=== PATIENT | male | born 1975 | race Caucasian/White ===

== ENCOUNTER 2016-07-21 18:58 | Emergency (ER) | payer SELFPAY ==
--- NOTE | 2016-07-21 23:56 | ED CLINICAL REPORT ---
Clinical Report - Physicians/Mid Levels [facility] [address] [place] [address] 07/21/2016 19:00 Patient: TIMMY LUKE Time Seen: 20:53. Arrived- By private vehicle. Historian- patient. HISTORY OF PRESENT ILLNESS Chief Complaint: RIGHT TESTICULAR PAIN. This started about 4 days ago and is still present. The problem is described as severe. It was gradual in onset and has been constant. No penile discharge, discomfort with urination or genital lesion. The patient has had mild urinary frequency with previous similar symptoms (chronically). He has had testicular pain. He has been voiding small amounts (frequently). Similar symptoms previously: None. REVIEW OF SYSTEMS No chills, fever, sweats, calf pain or chest pain. No cough, difficulty breathing, pedal edema, palpitations or abdominal pain. No constipation, diarrhea, nausea or vomiting. He has had frequency (chronically). It has been similar to previous symptoms. All systems otherwise negative, except as recorded above. PAST HISTORY Problems: Hypertension. Dental Pain. Dental Caries. Torn rotator cuff zara shoulders. Additional Surgeries: Appendectomy. Hernia Repair. Medications: None. Allergies: No Known Drug Allergy. SOCIAL HISTORY Current every day heavy tobacco smoker (cigarette)- 1 pack per day. Occasional alcohol use. History of occasional drug use: marijuana. He lives with spouse. ADDITIONAL NOTES The nursing notes have been reviewed. PHYSICAL EXAM Vital Signs: 07/21/2016 19:27 BP: 134/80. HR: 72. RR: 18. O2 saturation: 99%. Temp: 98.5 F. Have been reviewed. Appearance: Alert. ENT: Pharynx normal. Neck: Neck supple. CVS: Heart sounds normal. Respiratory: No respiratory distress. Breath sounds normal. Abdomen: Soft and nontender. Bowel sounds normal. No organomegaly. No mass. Back: Normal external inspection. No CVA tenderness. : Severe tenderness of the right testicle, epididymis and spermatic cord. No urethral discharge, genital lesion, hernia mass or scrotal mass or swelling. No inguinal lymphadenopathy. Skin: Skin warm and dry. Normal skin color. No rash. Normal skin turgor. Extremities: No lower extremity edema. LABS, X-RAYS, AND EKG Scrotal Sonogram: IMPRESSION: 1. Normal testicles. 2. Mild vascularity of the right epididymis. Consider epididymitis. The study was interpreted contemporaneously by me and discussed with the radiologist. PROGRESS AND PROCEDURES Patient/family counseled. Old medical records reviewed. Disposition: Discharged. Condition: stable. CLINICAL IMPRESSION Right epididymitis INSTRUCTIONS Drink plenty of fluids. Warnings: Further evaluation is necessary. GENERAL WARNINGS: Return or contact your physician immediately if your condition worsens or changes unexpectedly, if not improving as expected, or if other problems arise. Prescription Medications: Cipro 500 mg: take 1 tab orally every 12 hours for 10 days. Dispense twenty (20). No refills. Substitution is permissible. Understanding of the discharge instructions verbalized by patient and family. Follow-up with: James Nicholson MD, Internal Medicine, , [facility], [address] [place] [address] Follow up in five days. Call for the next available appointment. (Electronically signed by Caio Hilliard MD 07/25/2016 18:35)
--- NOTE | 2016-07-21 23:56 | ED ORDER SUMMARY ---
..... Patient: TIMMY LUKE OrderSheet [facility] VisitID: [id number] [address] [place] [address] 40y, M Registration Date/Time: 07/21/2016 ORDER SHEET Weight: 113.3 kg (stated) Allergies: No Known Drug Allergy GENERAL ORDERS: US Scrotum/Testicular Urgent (21:21 07/21/2016 [employer] verbal order read back to Alyssa GRANT) (Ack 21:28 [employer] ER Tech[facility]) (22:54 LMuller) UA-Culture if indicated Urgent (21:32 07/21/2016 Alyssa GRANT) (Ack 21:33 [facility] ER Tech1) (21:37 JQuivesamara R.N.) MEDICATION ORDERS: Levaquin PO 500 mg (NOW) (23:55 07/21/2016 Alyssa GRANT) (0:03 JQuivey R.N.) IV FLUIDS: ORDER SHEET NOTES: [Electronically signed by Marcello Montes R.N. (07/22/2016)] [Electronically signed by Caio Hilliard MD (18:35 07/25/2016)] [Electronically locked/signed by Marcello Montes R.N. (07/22/2016)]
--- NOTE | 2016-07-21 23:56 | ED NURSING NOTES ---
Clinical Report - Nurses [facility] [address] [place] [address] 07/21/2016 19:00 Patient: TIMMY LUKE TRIAGE Triage time 19:Jul 21 2016. Acuity: LEVEL 3. Alert. No acute distress. --19:31 Joellen Camacho R.N. 19:27 07/21/16. BP: 134/80. HR: 72. RR: 18. O2 saturation: 99%. Temp: 98.5 F. Pain level now 02/19. --19:31 Joellen Camacho R.N. Chief Complaint: (Groin pain). --01:22 Marcello Montes R.N. Weight: 113.3 kg stated. Height/Length: 72 inches Per Patient. BMI: 33.9. --19:27 Joellen Camacho R.N. Medications None. --19:30 Joellen Camacho R.N. Medication/allergy information source: the patient. --19:31 Joellen Camacho R.N. Allergies No Known Drug Allergy. --19:30 Joellen Camacho R.N. History Arrived by private vehicle, and accompanied by family. Primary physician (Nolan). ( 4 days of groin pain, has a hx of surgury in the same area. Inguinal Hernia. Also the pain radiates down to his Right Testicular area. Pain 810.). Onset. (4 days). 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 SOCIAL HX: Heavy tobacco smoker (cigarette)- 1 pack per day. Occasional alcohol use. History of drug use: marijuana. No recent travel. No known contact with a sick individual. NUTRITIONAL RISK ASSESSMENT: The nutritional risk assessment revealed no deficiencies. FUNCTIONAL ASSESSMENT: Functional assessment: no impairments noted. LEARNING NEEDS ASSESSMENT: The learning needs assessment revealed no barriers. --19:31 Joellen Camacho R.N. PROBLEMS: Hypertension. Dental Pain. Immunizations. Dental Caries. Torn rotator cuff zara shoulders. --19:30 Joellen Camacho R.N. ADDITIONAL SURGERIES: Appendectomy. --19:30 Joellen Camacho R.N. Interventions ID band on patient. To room. --19:31 Joellen Camacho R.N. PHYSICAL ASSESSMENT Ambulatory to room. Patient gowned. GENERAL / NEURO / PSYCH: Alert. Oriented X 4. HEENT: Mucous membranes are pink. RESPIRATORY: Respirations not labored. GI / : Normal genitalia. SKIN: Skin is warm and dry. --20:50 Marcello Montes R.N. NURSING PROGRESS NOTES 20:47. Head of bed elevated. Two patient identifiers checked. Call light placed in reach. Side rails up x 1. Bed placed in lowest position. Brakes of bed on. Patient ready for evaluation- chart flagged. --20:47 Marcello Montes R.N. 21:34. Patient ID band checked for patient name and birthdate: patient confirmed. Clean catch urine collected with return of yellow-colored clear urine; sample sent to lab for urinalysis. Specimen labeled in the presence of the patient. --21:35 Marcello Montes R.N. The patient is calm and resting quietly. SKIN: Skin is warm and dry. Skin color within normal limits. --21:37 Marcello Montes R.N. 21:36 07/21/16. BP: 128/74. HR: 62. RR: 15. O2 saturation: 99% on room air. Pain level now: 10. --21:37 Marcello Montes R.N. 22:28 regulatory and compliance technician with patient for exam. --22:57 Marcello Montes R.N. 23:52 07/21/2016 Levaquin (Levofloxacin) PO 500 mg given. Allergies verified and confirmed 5 rights. --00:03 Marcello Montes R.N. 23:59. SKIN: Skin color within normal limits. --01:21 Marcello Montes R.N. DISPOSITION / DISCHARGE Departure time: 427. Condition at departure: stable. ( Patient is upset about waiting so long, sitting on edge of bed, dressed and stated " I just about walked out of here a while ago, it's been an hour since the was in here." Patient refused vitals). No learning barriers present. Discharge instructions provided and reviewed with the patient and spouse. Patient and spouse verbalized understanding. Written instructions provided in Canadian. The patient was discharged home and accompanied by spouse. He left the Emergency Department ambulatory and via private vehicle. Spouse driving. FALL RISK ASSESSMENT: Fall risk assessment completed. No fall risk identified. --01:21 Marcello Montes R.N. Locked/Released at 07/22/2016 1:22 by Marcello Montes R.N.
--- NOTE | 2016-07-21 23:56 | ED NURSING NOTES ---
Clinical Report - Nurses [facility] [address] [place] [address] 07/21/2016 19:00 Patient: TIMMY LUKE TRIAGE Triage time 19:Jul 21 2016. Acuity: LEVEL 3. Alert. No acute distress. --19:31 Joellen Camacho R.N. 19:27 07/21/16. BP: 134/80. HR: 72. RR: 18. O2 saturation: 99%. Temp: 98.5 F. Pain level now 02/19. --19:31 Joellen Camacho R.N. Chief Complaint: (Groin pain). --01:22 Marcello Montes R.N. Weight: 113.3 kg stated. Height/Length: 72 inches Per Patient. BMI: 33.9. --19:27 Joellen Camacho R.N. Medications None. --19:30 Joellen Camacho R.N. Medication/allergy information source: the patient. --19:31 Joellen Camacho R.N. Allergies No Known Drug Allergy. --19:30 Joellen Camacho R.N. History Arrived by private vehicle, and accompanied by family. Primary physician (Nolan). ( 4 days of groin pain, has a hx of surgury in the same area. Inguinal Hernia. Also the pain radiates down to his Right Testicular area. Pain 810.). Onset. (4 days). 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 SOCIAL HX: Heavy tobacco smoker (cigarette)- 1 pack per day. Occasional alcohol use. History of drug use: marijuana. No recent travel. No known contact with a sick individual. NUTRITIONAL RISK ASSESSMENT: The nutritional risk assessment revealed no deficiencies. FUNCTIONAL ASSESSMENT: Functional assessment: no impairments noted. LEARNING NEEDS ASSESSMENT: The learning needs assessment revealed no barriers. --19:31 Joellen Camacho R.N. PROBLEMS: Hypertension. Dental Pain. Immunizations. Dental Caries. Torn rotator cuff zara shoulders. --19:30 Joellen Camacho R.N. ADDITIONAL SURGERIES: Appendectomy. --19:30 Joellen Camacho R.N. Interventions ID band on patient. To room. --19:31 Joellen Camacho R.N. PHYSICAL ASSESSMENT Ambulatory to room. Patient gowned. GENERAL / NEURO / PSYCH: Alert. Oriented X 4. HEENT: Mucous membranes are pink. RESPIRATORY: Respirations not labored. GI / : Normal genitalia. SKIN: Skin is warm and dry. --20:50 Marcello Montes R.N. NURSING PROGRESS NOTES 20:47. Head of bed elevated. Two patient identifiers checked. Call light placed in reach. Side rails up x 1. Bed placed in lowest position. Brakes of bed on. Patient ready for evaluation- chart flagged. --20:47 Marcello Montes R.N. 21:34. Patient ID band checked for patient name and birthdate: patient confirmed. Clean catch urine collected with return of yellow-colored clear urine; sample sent to lab for urinalysis. Specimen labeled in the presence of the patient. --21:35 Marcello Montes R.N. The patient is calm and resting quietly. SKIN: Skin is warm and dry. Skin color within normal limits. --21:37 Marcello Montes R.N. 21:36 07/21/16. BP: 128/74. HR: 62. RR: 15. O2 saturation: 99% on room air. Pain level now: 10. --21:37 Marcello Montes R.N. 22:28 ocular care technician with patient for exam. --22:57 Marcello Montes R.N. 23:52 07/21/2016 Levaquin (Levofloxacin) PO 500 mg given. Allergies verified and confirmed 5 rights. --00:03 Marcello Montes R.N. 23:59. SKIN: Skin color within normal limits. --01:21 Marcello Montes R.N. DISPOSITION / DISCHARGE Departure time: 747. Condition at departure: stable. ( Patient is upset about waiting so long, sitting on edge of bed, dressed and stated " I just about walked out of here a while ago, it's been an hour since the was in here." Patient refused vitals). No learning barriers present. Discharge instructions provided and reviewed with the patient and spouse. Patient and spouse verbalized understanding. Written instructions provided in Surinamese. The patient was discharged home and accompanied by spouse. He left the Emergency Department ambulatory and via private vehicle. Spouse driving. FALL RISK ASSESSMENT: Fall risk assessment completed. No fall risk identified. --01:21 Marcello Montes R.N. Locked/Released at 07/22/2016 1:22 by Marcello Montes R.N.
--- NOTE | 2016-07-21 23:56 | ED CLINICAL REPORT ---
Clinical Report - Physicians/Mid Levels [facility] [address] [place] [address] 07/21/2016 19:00 Patient: TIMMY LUKE Time Seen: 20:53. Arrived- By private vehicle. Historian- patient. HISTORY OF PRESENT ILLNESS Chief Complaint: RIGHT TESTICULAR PAIN. This started about 4 days ago and is still present. The problem is described as severe. It was gradual in onset and has been constant. No penile discharge, discomfort with urination or genital lesion. The patient has had mild urinary frequency with previous similar symptoms (chronically). He has had testicular pain. He has been voiding small amounts (frequently). Similar symptoms previously: None. REVIEW OF SYSTEMS No chills, fever, sweats, calf pain or chest pain. No cough, difficulty breathing, pedal edema, palpitations or abdominal pain. No constipation, diarrhea, nausea or vomiting. He has had frequency (chronically). It has been similar to previous symptoms. All systems otherwise negative, except as recorded above. PAST HISTORY Problems: Hypertension. Dental Pain. Dental Caries. Torn rotator cuff zara shoulders. Additional Surgeries: Appendectomy. Hernia Repair. Medications: None. Allergies: No Known Drug Allergy. SOCIAL HISTORY Current every day heavy tobacco smoker (cigarette)- 1 pack per day. Occasional alcohol use. History of occasional drug use: marijuana. He lives with spouse. ADDITIONAL NOTES The nursing notes have been reviewed. PHYSICAL EXAM Vital Signs: 07/21/2016 19:27 BP: 134/80. HR: 72. RR: 18. O2 saturation: 99%. Temp: 98.5 F. Have been reviewed. Appearance: Alert. ENT: Pharynx normal. Neck: Neck supple. CVS: Heart sounds normal. Respiratory: No respiratory distress. Breath sounds normal. Abdomen: Soft and nontender. Bowel sounds normal. No organomegaly. No mass. Back: Normal external inspection. No CVA tenderness. : Severe tenderness of the right testicle, epididymis and spermatic cord. No urethral discharge, genital lesion, hernia mass or scrotal mass or swelling. No inguinal lymphadenopathy. Skin: Skin warm and dry. Normal skin color. No rash. Normal skin turgor. Extremities: No lower extremity edema. LABS, X-RAYS, AND EKG Scrotal Sonogram: IMPRESSION: 1. Normal testicles. 2. Mild vascularity of the right epididymis. Consider epididymitis. The study was interpreted contemporaneously by me and discussed with the radiologist. PROGRESS AND PROCEDURES Patient/family counseled. Old medical records reviewed. Disposition: Discharged. Condition: stable. CLINICAL IMPRESSION Right epididymitis INSTRUCTIONS Drink plenty of fluids. Warnings: Further evaluation is necessary. GENERAL WARNINGS: Return or contact your physician immediately if your condition worsens or changes unexpectedly, if not improving as expected, or if other problems arise. Prescription Medications: Cipro 500 mg: take 1 tab orally every 12 hours for 10 days. Dispense twenty (20). No refills. Substitution is permissible. Understanding of the discharge instructions verbalized by patient and family. Follow-up with: James Nicholson MD, Internal Medicine, , [facility], [address] [place] [address] Follow up in five days. Call for the next available appointment. (Electronically signed by Caio Hilliard MD 07/25/2016 18:35)
--- NOTE | 2016-07-21 23:56 | ED ORDER SUMMARY ---
..... Patient: TIMMY LUKE OrderSheet [facility] VisitID: [id number] [address] [place] [address] 40y, M Registration Date/Time: 07/21/2016 ORDER SHEET Weight: 113.3 kg (stated) Allergies: No Known Drug Allergy GENERAL ORDERS: US Scrotum/Testicular Urgent (21:21 07/21/2016 [facility] ER Tech1 verbal order read back to Alyssa GRANT) (Ack 21:28 [facility] ER Tech1) (22:54 LMuller) UA-Culture if indicated Urgent (21:32 07/21/2016 Alyssa GRANT) (Ack 21:33 [facility] ER Tech1) (21:37 JQuivesamara R.N.) MEDICATION ORDERS: Levaquin PO 500 mg (NOW) (23:55 07/21/2016 Alyssa GRANT) (0:03 JQuivey R.N.) IV FLUIDS: ORDER SHEET NOTES: [Electronically signed by Marcello Montes R.N. (07/22/2016)] [Electronically signed by Caio Hilliard MD (18:35 07/25/2016)] [Electronically locked/signed by Marcello Montes R.N. (07/22/2016)]
--- NOTE | 2016-07-22 00:03 | DIAGNOSTIC IMAGING REPORT ---
PROCEDURE: US SCROTUM/TESTICLE INDICATION: SCROTAL PAIN TECHNIQUE: Driscoll scale and color Doppler sonographic images through the scrotum were obtained. COMPARISON: None. FINDINGS: RIGHT TESTICLE: Right testicle is of normal size (4.2 x 2.2 x 2.8 cm) with normal vascularity. There is mild vascularity of the right epididymis (1.1 x 0.8 cm). LEFT TESTICLE: Left testicle is of normal size 93.9 x 2.1 x 2.8 cm) with normal vascularity. Left epididymis is normal (1.2 x 0.8 cm). IMPRESSION: 1. Normal testicles. 2. Mild vascularity of the right epididymis. Consider epididymitis. 3. Findings discussed with Dr. Hilliard.
--- NOTE | 2016-07-25 18:36 | ED DISCHARGE INSTRUCTIONS ---
Patient: TIMMY ULKE General Instructions [facility] VisitID: [id number] [place] [address] 40y, M Registration Date/Time: 07/21/2016 Right epididymitis INSTRUCTIONS Drink plenty of fluids. Warnings: Further evaluation is necessary. GENERAL WARNINGS: Return or contact your physician immediately if your condition worsens or changes unexpectedly, if not improving as expected, or if other problems arise. Prescription Medications: Cipro 500 mg: take 1 tab orally every 12 hours for 10 days. Dispense twenty (20). No refills. Substitution is permissible. Understanding of the discharge instructions verbalized by patient and family. Follow-up with: James Nicholson MD, Internal Medicine, , [facility] at [facility], [address] [place] [address] Follow up in five days. Call for the next available appointment. ADDITIONAL INFORMATION Epididymitis The pain and swelling in your scrotum are due to an inflammation of the epididymis. This is a small sac next to the testicle that stores sperm. It is usually due to an infection. In sexually active men, it is often due to a sexually transmitted disease (STD) such as Chlamydia or Gonorrhea. In boys and older men who are not sexually active, it is due to bacteria from the bladder or prostate gland (not an STD infection). Symptoms may begin with lower abdominal or low back pain and spreads down into the scrotum. Usually only one side is affected. The testicle and scrotum swell and become very painful. There may be fever and burning when passing urine. Sometimes there is a discharge from the penis. Treatment is with antibiotics, anti-inflammatory and pain medicines. There should be improvement over the first few days of treatment, but it will take several weeks for all the swelling and discomfort to go away. If an STD is suspected as a cause, sexual partners must also be treated. Home Care: 1) Support the scrotum. When lying down, place a rolled towel under the scrotum. When walking, use an athletic supporter or two pairs of Jockey-style underwear. 2) To relieve pain, apply ice packs to the inflamed area (ice cubes in a plastic bag wrapped in a towel). 3) You may use acetaminophen (Tylenol) or ibuprofen (Motrin, Advil) to control pain, unless another medicine was prescribed. [ NOTE : If you have chronic liver or kidney disease or ever had a stomach ulcer or GI bleeding, talk with your doctor before using these medicines.] 4) Rest in bed until the fever, pain and swelling decrease. It may take several weeks for all of the swelling to go away. Avoid coffee, tea, carbonated beverages and alcohol, which could worsen your symptoms. 5) Avoid constipation (which causes straining and therefore increased pain) by eating natural laxatives such as prunes, fresh fruits and whole-grain cereals. If necessary, use a mild zrdl-cix-ubjibgh laxative (Milk of Magnesia) for constipation. Mineral oil can be used to keep the stools soft. 6) Do not have sex until you have finished all treatment and all symptoms have cleared. 7) Take all medicine as directed. Do not miss any doses and do not stop early even if you feel better. Follow Up with your doctor, a urologist, or as advised by our staff to be sure you are responding properly to treatment. If a culture was taken, you may call for the result in 2-3 days. A culture test can ensure that you are on the correct antibiotic. Get Prompt Medical Attention if any of the following occur: -- Fever over 100.4 F (38.0 C) after three days of treatment -- Increasing pain or swelling of the testicle after starting treatment -- Increasing pressure or pain in your bladder -- Unable to pass urine for eight hours Ciprofloxacin Hydrochloride Oral tablet What is this medicine? CIPROFLOXACIN (sip tanner FLOX a sin) is a quinolone antibiotic. It is used to treat certain kinds of bacterial infections. It will not work for colds, flu, or other viral infections. How should I use this medicine? Take this medicine by mouth with a glass of water. Follow the directions on the prescription label. Take your medicine at regular intervals. Do not take your medicine more often than directed. Take all of your medicine as directed even if you think your are better. Do not skip doses or stop your medicine early. You can take this medicine with food or on an empty stomach. It can be taken with a meal that contains dairy or calcium, but do not take it alone with a dairy product, like milk or yogurt or calcium-fortified juice. A special MedGuide will be given to you by the pharmacist with each prescription and refill. Be sure to read this information carefully each time. Talk to your medical records library professor regarding the use of this medicine in children. Special care may be needed. What side effects may I notice from receiving this medicine? Side effects that you should report to your doctor or health health care analyst as soon as possible: - allergic reactions like skin rash, itching or hives, swelling of the face, lips, or tongue - breathing problems - confusion, nightmares or hallucinations - feeling faint or lightheaded, falls - irregular heartbeat - joint, muscle or tendon pain or swelling - pain or trouble passing urine -persistent headache with or without blurred vision - redness, blistering, peeling or loosening of the skin, including inside the mouth - seizure - unusual pain, numbness, tingling, or weakness Side effects that usually do not require medical attention (report to your doctor or health health care analyst if they continue or are bothersome): - diarrhea - nausea or stomach upset - white patches or sores in the mouth What may interact with this medicine? Do not take this medicine with any of the following medications: cisapride droperidol terfenadine tizanidine This medicine may also interact with the following medications: antacids caffeine cyclosporin didanosine (ddI) buffered tablets or powder medicines for diabetes medicines for inflammation like ibuprofen, naproxen methotrexate multivitamins omeprazole phenytoin probenecid sucralfate theophylline warfarin What if I miss a dose? If you miss a dose, take it as soon as you can. If it is almost time for your next dose, take only that dose. Do not take double or extra doses. Where should I keep my medicine? Keep out of the reach of children. Store at room temperature below 30 degrees C (86 degrees F). Keep container tightly closed. Throw away any unused medicine after the expiration date. What should I tell my health care provider before I take this medicine? They need to know if you have any of these conditions: -bone problems -cerebral disease -joint problems -irregular heartbeat -kidney disease -liver disease -myasthenia gravis -seizure disorder -tendon problems -an unusual or allergic reaction to ciprofloxacin, other antibiotics or medicines, foods, dyes, or preservatives - or trying to get -breast-feeding What should I watch for while using this medicine? Tell your doctor or health health care analyst if your symptoms do not improve. Do not treat diarrhea with over the counter products. Contact your doctor if you have diarrhea that lasts more than 2 days or if it is severe and watery. You may get drowsy or dizzy. Do not drive, use machinery, or do anything that needs mental alertness until you know how this medicine affects you. Do not stand or sit up quickly, especially if you are an older patient. This reduces the risk of dizzy or fainting spells. This medicine can make you more sensitive to the sun. Keep out of the sun. If you cannot avoid being in the sun, wear protective clothing and use sunscreen. Do not use sun lamps or tanning beds/booths. Avoid antacids, aluminum, calcium, iron, magnesium, and zinc products for 6 hours before and 2 hours after taking a dose of this medicine. You have been given the following additional information: Epididymitis Ciprofloxacin Hydrochloride Oral tablet (Electronically signed by Caio Hilliard MD 07/25/2016 18:35)
--- NOTE | 2016-07-25 18:36 | ED MAR SUMMARY ---
..... Medication Administration Record [facility] [address] [place] [address] Patient: TIMMY LUKE Visit ID: [id number] 40y, M Weight: 113.3 kg Height/Length: 72 in BMI: 33.9 ALLERGIES: No Known Drug Allergy Given 23:52 07/21/2016 Marcello Montes R.N. Medication Administered: LEVAQUIN [PO] (LEVOFLOXACIN), Dose: 500 mg PO. Medication Ordered: Levaquin PO 500 mg (NOW).
--- NOTE | 2016-07-25 18:36 | ED MAR SUMMARY ---
..... Medication Administration Record [facility] [address] [place] [address] Patient: TIMMY LUKE Visit ID: [id number] 40y, M Weight: 113.3 kg Height/Length: 72 in BMI: 33.9 ALLERGIES: No Known Drug Allergy Given 23:52 07/21/2016 Marcello Montes R.N. Medication Administered: LEVAQUIN [PO] (LEVOFLOXACIN), Dose: 500 mg PO. Medication Ordered: Levaquin PO 500 mg (NOW).
--- NOTE | 2016-07-25 18:36 | ED DISCHARGE INSTRUCTIONS ---
Patient: TIMMY LUKE General Instructions [facility] VisitID: [id number] [place] [address] 40y, M Registration Date/Time: 07/21/2016 Right epididymitis INSTRUCTIONS Drink plenty of fluids. Warnings: Further evaluation is necessary. GENERAL WARNINGS: Return or contact your physician immediately if your condition worsens or changes unexpectedly, if not improving as expected, or if other problems arise. Prescription Medications: Cipro 500 mg: take 1 tab orally every 12 hours for 10 days. Dispense twenty (20). No refills. Substitution is permissible. Understanding of the discharge instructions verbalized by patient and family. Follow-up with: James Nicholson MD, Internal Medicine, , [facility] at [facility], [address] [place] [address] Follow up in five days. Call for the next available appointment. ADDITIONAL INFORMATION Epididymitis The pain and swelling in your scrotum are due to an inflammation of the epididymis. This is a small sac next to the testicle that stores sperm. It is usually due to an infection. In sexually active men, it is often due to a sexually transmitted disease (STD) such as Chlamydia or Gonorrhea. In boys and older men who are not sexually active, it is due to bacteria from the bladder or prostate gland (not an STD infection). Symptoms may begin with lower abdominal or low back pain and spreads down into the scrotum. Usually only one side is affected. The testicle and scrotum swell and become very painful. There may be fever and burning when passing urine. Sometimes there is a discharge from the penis. Treatment is with antibiotics, anti-inflammatory and pain medicines. There should be improvement over the first few days of treatment, but it will take several weeks for all the swelling and discomfort to go away. If an STD is suspected as a cause, sexual partners must also be treated. Home Care: 1) Support the scrotum. When lying down, place a rolled towel under the scrotum. When walking, use an athletic supporter or two pairs of Jockey-style underwear. 2) To relieve pain, apply ice packs to the inflamed area (ice cubes in a plastic bag wrapped in a towel). 3) You may use acetaminophen (Tylenol) or ibuprofen (Motrin, Advil) to control pain, unless another medicine was prescribed. [ NOTE : If you have chronic liver or kidney disease or ever had a stomach ulcer or GI bleeding, talk with your doctor before using these medicines.] 4) Rest in bed until the fever, pain and swelling decrease. It may take several weeks for all of the swelling to go away. Avoid coffee, tea, carbonated beverages and alcohol, which could worsen your symptoms. 5) Avoid constipation (which causes straining and therefore increased pain) by eating natural laxatives such as prunes, fresh fruits and whole-grain cereals. If necessary, use a mild ahqo-avz-pgbznwq laxative (Milk of Magnesia) for constipation. Mineral oil can be used to keep the stools soft. 6) Do not have sex until you have finished all treatment and all symptoms have cleared. 7) Take all medicine as directed. Do not miss any doses and do not stop early even if you feel better. Follow Up with your doctor, a urologist, or as advised by our staff to be sure you are responding properly to treatment. If a culture was taken, you may call for the result in 2-3 days. A culture test can ensure that you are on the correct antibiotic. Get Prompt Medical Attention if any of the following occur: -- Fever over 100.4 F (38.0 C) after three days of treatment -- Increasing pain or swelling of the testicle after starting treatment -- Increasing pressure or pain in your bladder -- Unable to pass urine for eight hours Ciprofloxacin Hydrochloride Oral tablet What is this medicine? CIPROFLOXACIN (sip tanner FLOX a sin) is a quinolone antibiotic. It is used to treat certain kinds of bacterial infections. It will not work for colds, flu, or other viral infections. How should I use this medicine? Take this medicine by mouth with a glass of water. Follow the directions on the prescription label. Take your medicine at regular intervals. Do not take your medicine more often than directed. Take all of your medicine as directed even if you think your are better. Do not skip doses or stop your medicine early. You can take this medicine with food or on an empty stomach. It can be taken with a meal that contains dairy or calcium, but do not take it alone with a dairy product, like milk or yogurt or calcium-fortified juice. A special MedGuide will be given to you by the pharmacist with each prescription and refill. Be sure to read this information carefully each time. Talk to your hospice office coordinator regarding the use of this medicine in children. Special care may be needed. What side effects may I notice from receiving this medicine? Side effects that you should report to your doctor or health auto care center manager as soon as possible: - allergic reactions like skin rash, itching or hives, swelling of the face, lips, or tongue - breathing problems - confusion, nightmares or hallucinations - feeling faint or lightheaded, falls - irregular heartbeat - joint, muscle or tendon pain or swelling - pain or trouble passing urine -persistent headache with or without blurred vision - redness, blistering, peeling or loosening of the skin, including inside the mouth - seizure - unusual pain, numbness, tingling, or weakness Side effects that usually do not require medical attention (report to your doctor or health auto care center manager if they continue or are bothersome): - diarrhea - nausea or stomach upset - white patches or sores in the mouth What may interact with this medicine? Do not take this medicine with any of the following medications: cisapride droperidol terfenadine tizanidine This medicine may also interact with the following medications: antacids caffeine cyclosporin didanosine (ddI) buffered tablets or powder medicines for diabetes medicines for inflammation like ibuprofen, naproxen methotrexate multivitamins omeprazole phenytoin probenecid sucralfate theophylline warfarin What if I miss a dose? If you miss a dose, take it as soon as you can. If it is almost time for your next dose, take only that dose. Do not take double or extra doses. Where should I keep my medicine? Keep out of the reach of children. Store at room temperature below 30 degrees C (86 degrees F). Keep container tightly closed. Throw away any unused medicine after the expiration date. What should I tell my health care provider before I take this medicine? They need to know if you have any of these conditions: -bone problems -cerebral disease -joint problems -irregular heartbeat -kidney disease -liver disease -myasthenia gravis -seizure disorder -tendon problems -an unusual or allergic reaction to ciprofloxacin, other antibiotics or medicines, foods, dyes, or preservatives - or trying to get -breast-feeding What should I watch for while using this medicine? Tell your doctor or health auto care center manager if your symptoms do not improve. Do not treat diarrhea with over the counter products. Contact your doctor if you have diarrhea that lasts more than 2 days or if it is severe and watery. You may get drowsy or dizzy. Do not drive, use machinery, or do anything that needs mental alertness until you know how this medicine affects you. Do not stand or sit up quickly, especially if you are an older patient. This reduces the risk of dizzy or fainting spells. This medicine can make you more sensitive to the sun. Keep out of the sun. If you cannot avoid being in the sun, wear protective clothing and use sunscreen. Do not use sun lamps or tanning beds/booths. Avoid antacids, aluminum, calcium, iron, magnesium, and zinc products for 6 hours before and 2 hours after taking a dose of this medicine. You have been given the following additional information: Epididymitis Ciprofloxacin Hydrochloride Oral tablet (Electronically signed by Caio Hilliard MD 07/25/2016 18:35)
--- NOTE | 2016-07-25 18:36 | ED MED RECONCILIATION SUMMARY ---
Patient: TIMMY LUKE Medication Reconciliation Report [facility] VisitID: [id number] [address] [place] [address] 40y, M Registration Date/Time: 07/21/2016 Weight: 113.3 kg Height/Length: 72 in. BMI: 33.9 ALLERGIES: No Known Drug Allergy The patient's Home Medications are listed below: NONE. The source(s) of the original Home Medication information: patient The following Medications were given to the patient in the Emergency Department: Levaquin [PO] PO 500 mg, administered: 07/21/2016 11:52:00 PM The following Medications were prescribed to the patient: Cipro 500 mg: take 1 tab orally every 12 hours for 10 days. Dispense twenty (20). No refills. Substitution is permissible. -- Caio Hilliard MD
--- NOTE | 2016-07-25 18:36 | ED MED RECONCILIATION SUMMARY ---
Patient: TIMMY LUKE Medication Reconciliation Report [facility] VisitID: [id number] [address] [place] [address] 40y, M Registration Date/Time: 07/21/2016 Weight: 113.3 kg Height/Length: 72 in. BMI: 33.9 ALLERGIES: No Known Drug Allergy The patient's Home Medications are listed below: NONE. The source(s) of the original Home Medication information: patient The following Medications were given to the patient in the Emergency Department: Levaquin [PO] PO 500 mg, administered: 07/21/2016 11:52:00 PM The following Medications were prescribed to the patient: Cipro 500 mg: take 1 tab orally every 12 hours for 10 days. Dispense twenty (20). No refills. Substitution is permissible. -- Caio Hilliard MD
== END 2016-07-21 23:59 | disposition home or self-care (01) ==
LOC: ED SRH 18:58
DX: N45.1 Epididymitis (principal); I10 Essential (primary) hypertension; F17.210 Nicotine dependence, cigarettes, uncomplicated
CPT/HCPCS: 90004